=== PATIENT | female | born 1960 | race Caucasian/White ===

== ENCOUNTER 2017-09-12 08:46 | Day surgery (SDC) | payer BC ==
[~2017-09-12 08:46] MED LIST: Buffered Lidocaine 0.9% SYRIN* 5 ML/SYR SYRINGE INTRADERM ONE; Naproxen TAB* 250 MG ONE; Naproxen TAB* 250 MG PO ONE; Sodium Citrate/Citric Acid* 15 ML UDC ONE; Sodium Citrate/Citric Acid* 15 ML UDC PO ONE; ceFAZolin 2 GM PREMIX (*) 2 GM/50 ML BAG IVPB ONE
[2017-09-12] MEDS ORDERED: Bupivacaine 0.25% SDV* 30 ML ONE (12:01)
[2017-09-12] MEDS ORDERED: Bupivacaine 0.5% SDV PF* 10-30ML VIAL ONE (12:40)
[2017-09-12] MEDS ORDERED: fentaNYL* 50 MCG/ML 2 ML VIAL (100 MCG VIAL) ONE ×2 (12:47→13:25)
[2017-09-12] MEDS ORDERED: Midazolam* 1 MG/ML 2 ML VIAL (2 MG) ONE ×2 (12:47→13:30)
[2017-09-12] MEDS ORDERED: EPINEPHrine AMP 1 MG/ML ONE (12:53)
[2017-09-12] MEDS ORDERED: Propofol* 10 MG/ML 20 ML BTL IV PUSH ONE ×3 (13:25→14:29)
[2017-09-12] MEDS ORDERED: fentaNYL* 50 MCG/ML 2 ML VIAL (100 MCG VIAL) IV PRN (13:49)
[2017-09-12] MEDS ORDERED: Naloxone* 0.4 MG/ML 1 ML VIAL IV PRN (13:49)
[2017-09-12] MEDS ORDERED: oxyCODONE/Acetamin 5/325 MG* TAB PO PRN (13:49)
[2017-09-12 15:12] VITALS: BP 125/68
--- NOTE | 2017-09-13 05:24 | OP ---
DATE OF OPERATION: 09/12/17 - [facility] DATE OF : 56 SURGEON: Kevin Chiang MD WRECKER OPERATOR: WANDA Albarado ANESTHESIOLOGIST: Dr. Haas. ANESTHESIA: General. PRE-OP DIAGNOSES: 1. Failed left thumb carpometacarpal arthroplasty with some retained trapezium and retained EndoButton from a Mini TightRope device. 2. Left scaphotrapezoid degenerative joint disease. 3. Left volar thumb mass. POST-OP DIAGNOSES: 1. Failed left thumb carpometacarpal arthroplasty with some retained trapezium and retained EndoButton from a Mini TightRope device. 2. Left scaphotrapezoid degenerative joint disease. 3. Left volar thumb mass. OPERATIVE PROCEDURES: 1. Revision thumb, left carpometacarpal arthroplasty with excision of remaining trapezium and distally based split flexor carpi radialis tendon transfer for thumb suspension and tendon interposition. 2. Left partial trapeziectomy. 3. Removal of hardware (EndoButton) left thumb. 4. Excision of large symptomatic left thumb interphalangeal joint volar sesamoid bone. ESTIMATED BLOOD LOSS: 2 mL. COMPLICATIONS: None. FINDINGS: There was a very large piece of the trapezium that was retained which was frankly degenerative. There was scaphotrapezoid arthritis seen. The volar IP joint mass was a large ossicle that was really the sesamoid bone in the volar plate. DESCRIPTION OF PROCEDURE: Natacha was seen in the preoperative holding area. The correct site, side, and procedure were identified. We came back to the operating room and the arm was prepped and draped in the usual fashion. A time- out was performed. I began by making a longitudinal incision from the dorsal aspect of the thumb MCP joint down towards the radial styloid and dorsal to the first dorsal compartment tendons. Dissection was carried down longitudinally to preserve the traversing sensory nerves. The radial artery was encountered and mobilized. Its perforating branches were cauterized. The venous plexus was cauterized. The capsule was then opened and the scar tissue was excised and capsular and subperiosteal flaps were raised off a very large ulnar-sided piece of trapezium that remained. The piece pretty much crossed from the distal pole of the scaphoid all the way down to the metacarpal base and articulated with the ulnar third of the metacarpal base. This piece was shelled out with the saxman blade and then excised with a rongeur until it was completely removed. The FCR tendon was preserved in the base of the wound. I then inspected the scaphotrapezoid joint and this had severe degenerative joint disease and full thickness cartilage loss. I used the osteotome to make it clean cut and excise the proximal 3 or so millimeters of the proximal trapezoid. The wafer came out in a couple of pieces with the rongeur. I then loaded the second ray and could not bring the trapezoid into contact with the distal pole of the scaphoid. At this point, I came distal and freed up the radial-sided periosteum until the EndoButton was encountered. This was the heavy braided sutures and the EndoButton were cut with the knife and the EndoButton was removed and handed off. I then used sequentially larger drill bits to drill a hole from the dorsal radial aspect of the metacarpal base out the volar ulnar aspect of the articular surface right towards the base of the second metacarpal in anticipation for my subsequent tendon transfer. At this point, I turned my attention to the forearm and made 3 transverse incisions each about 1 cm, each sequentially proximal than the other. The FCR tendon was delivered into the distal wound and split and a 26-gauge wire was passed in the split. I freed up the tendon sheath and then brought the wire sequentially into the 2 more proximal wounds to split the tendon and release at the musculotendinous junction. I placed a 3-0 Ethibond suture in the proximal end of the split tail of the tendon to prevent it from fraying. I then delivered this into the thumb base wound using a couple of 26-gauge wires to shuttle the tendon down. The split in the tendon was completed right down to the base of the second metacarpal. I then used the wire to pass the tendon through the drill hole and then back around the intact limb of the FCR tendon. Appropriate tension was set and the tendon transfer was secured with three 3-0 Ethibond sutures. First [id number] suture grabbed all 3 limbs of the transfer, the 2 subsequent grabbed sutured intact limb to intact limb. I then made a mat using 4-0 Vicryl out of the remainder of my FCR tendon tail. Traction was then pulled on the second ray. The tendon mat was docked in between the proximal aspect of the trapezoid and distal pole of the scaphoid. I then released the traction off the second ray and this held the tendon interposition very nicely in that space. Any remaining tendon was placed as an interposition between the thumb base and the distal pole of the scaphoid. The capsule was then closed with 3-0 Ethibond suture. All the wounds were then closed with 4-0 nylon suture and infiltrated with 0.25% plain Marcaine. I then performed a digital block with 0.25% plain Marcaine for the left thumb down about the MP joint. I made a Casey incision over the volar aspect of the IP joint. Dissection was carried down and the distal tendon sheath was released. The Ragnell retractor was used to retract the tendon radially and then ulnarly. The large volar ossicle which was readily palpable was shelled out with a saxman blade and then excised with a rongeur. Once it was completely excised, we irrigated out the wound. The FPL tendon was clearly still attached to the bone. The wound was irrigated out. Skin was closed with 4-0 nylon suture. All the wounds were dressed with Xeroform, 4x4, sterile Webril, and a thumb spica splint was applied. Tourniquet was deflated and the patient was taken to the recovery room in stable condition. [id number] #: [id number] JOSE ANTONIO
== END 2017-09-12 15:37 | disposition home or self-care (01) ==
LOC: OREAST 08:46
PROVIDERS: ATTEND Orthopaedic Surgery Hand Surgery
DX: M19.242 Secondary osteoarthritis, left hand (principal); M65.4 Radial styloid tenosynovitis [de Quervain]; M77.8 Other enthesopathies, not elsewhere classified; M25.742 Osteophyte, left hand; E03.9 Hypothyroidism, unspecified; G43.909 Migraine, unspecified, not intractable, without status migrainosus
CPT/HCPCS: A9270-GY; J0171; J0690; J2250; J2704; J3010